=== PATIENT | female | born 1970 | race Caucasian/White ===

== ENCOUNTER 2019-08-05 07:27 | Day surgery (SDC) | payer MEDICARE, OTHER ==
[2019-08-05] MEDS ORDERED: fentaNYL CITRATE/PF 100 MCG/2 ML INJ. ONE (08:48)
[2019-08-05] MEDS ORDERED: LACTATED RINGERS 1,000 ML IV.SOLN IV ONE (08:48)
[2019-08-05] MEDS ORDERED: LIDOCAINE HCL 1% PF 300MG/30ML VIAL ONE (08:48)
[2019-08-05] MEDS ORDERED: BUPIVACAINE HCL 0.5% (5MG/ML) PF 10ML VIAL IV ONE (08:48)
[2019-08-05] MEDS ORDERED: MIDAZOLAM HCL 2 MG/2 ML VIAL ONE (08:48)
[2019-08-05] MEDS ORDERED: methylPREDNISolone ACETATE 80 MG/ML VIAL IM ONE (08:48)
[2019-08-05] MEDS ORDERED: LIDOCAINE HCL 2% PF 100MG/5ML VIAL IJ ONE (08:48)
[2019-08-05] MEDS ORDERED: HYDROcodone /APAP 10/325 1 EACH TABLET PO ONE (10:11)
== END 2019-08-05 10:28 | disposition home or self-care (01) ==
LOC: OPSURG 07:27
DX: M47.816 Spondylosis without myelopathy or radiculopathy, lumbar region (principal)
CPT/HCPCS: 64635; 64636; J1040; J2001; J2250; J3010; J3490; J7120